=== PATIENT | male | born 1950 ===

== ENCOUNTER 2018-12-11 07:01 | Day surgery (SDC) | payer OTHER ==
[~2018-12-11] VITALS: Ht 185.4 cm; Wt 83.0 kg
[~2018-12-11 07:01] MED LIST: ALVESCO80 MCG/ACT; LISINOPRIL10 MG PO; SINGULAIR10 MG PO; XOPENEX HF45 MCG/ACT
[2018-12-11] MEDS ORDERED: IBUPROFEN600 MG PO (07:21)
[2018-12-11] MEDS ORDERED: ASPIRIN 81 LOW81 MG (07:22)
[2018-12-11] MEDS ORDERED: METFORMIN500 MG PO (07:43)
[2018-12-11 11:46] VITALS: BP 146/76
== END 2018-12-11 12:05 | disposition other institution (70) | DRG 352 ==
LOC: ORM 07:01
PROVIDERS: ATTEND Surgery
PROC: 0YU50JZ Supplement Right Inguinal Region with Synthetic Substitute, Open Approach (ICD-10-PCS; principal; 2018-12-11)
DX: K40.90 Unilateral inguinal hernia, without obstruction or gangrene, not specified as recurrent (principal); I10 Essential (primary) hypertension; J43.9 Emphysema, unspecified
CPT/HCPCS: C9290